=== PATIENT | male | born 1940 | race Caucasian/White ===

== ENCOUNTER 2016-05-07 11:53 | Emergency (ER) | payer OTHER ==
[~2016-05-07] VITALS: Wt 81.8 kg
[~2016-05-07 11:53] MED LIST: AMLO-218 PO; AMOX; BISA10SU RC; CLIN-73 PO; CLOP75TA19 PO; DOCU-144 PO; EPO4ESRD IJ; FERR1POW MC; GLIP-95 PO; GLIP5POW2 MC; HYDR-3498 PO; HYDR-3672 PO; HYDR-762 PO; IBUP-1542 PO; ICNCLON PO; LACT10SO53 PO; LANTUS; LANTUS SC; LISI40TA9 PO; METO-448 PO; NEPH PO; NOVOLIN; NOVOLOG; PARO20TA58 PO; PERCOCET PO; PROC10TA PO; RANI150T9 PO; SEVE800T10 PO; SIMV40TA2 PO; [UNRECOGNIZED DRUG - OTHER] PO
[2016-05-07 11:57] VITALS: Wt 81.8 kg
[2016-05-07] MEDS ORDERED: CEPH-443 PO (14:28)
--- NOTE | 2016-05-07 14:57 | ERD ---
ER Documentation Chief Complaint Date/Time DATE: 05/07/16 TIME: 14:54 Chief Complaint TOENAIL PAIN. (JUST TOOK HIS BP MEDS) HPI Patient is diabetic. 3 days ago he took off his left great toenail, the area is erythematous not painful. No fevers or chills. No headaches no chest pain. He has high blood pressure and his blood pressure is high now but he just took his BP meds prior to coming in. ROS All systems reviewed and are negative except as per history of present illness. Medications Home Meds Active Scripts Cephalexin* (Keflex*) 500 Mg Capsule, 500 MG PO QID for 5 Days, CAP Prov:ZULY TAVAREZ 05/07/16 Docusate Sodium* (Colace*) 100 Mg Capsule, 100 MG PO TID, #30 CAP Prov:GERONIMO BACA MD 07/15/15 Hydrocodone Bit-Acetaminophen* ([place]*) 10-325 Mg Tablet, 1 TAB PO Q6 Y for PAIN , #7 TAB Prov:GERONIMO BACA MD 07/15/15 Hydrocodone Bit-Acetaminophen* ([place]*) 5-325 Mg Tab, 1 TAB PO Q6 Y for PAIN LEVEL 6-10, #15 TAB Prov:CHOMINI 09/29/14 Ibuprofen* (Motrin*) 600 Mg Tab, 600 MG PO Q6, #15 TAB Prov:CHOKERENA 09/29/14 Clindamycin Hcl* (Clindamycin Hcl*) 300 Mg Capsule, 300 MG PO QID for 7 Days, CAP Prov:CHOMINI 09/29/14 Reported Medications [Novolog] No Conflict Check SLIDING SCALE AC AND HS 02/28/11 [Lantus ] No Conflict Check 14 UNIT HS 02/28/11 Oxycodone Hcl/Acetaminophen (Percocet) 1 Tab Tab, 2 TAB PO Q4 Y 02/28/11 Prochlorperazine Maleate (Compazine) 10 Mg Tablet, 10 MG PO Q4 Y 02/28/11 Clonidine (Clonidine (Pediatric Compound)) 0.1 Mg/Ml Susp, 0.1 MG PO Q6 Y 02/28/11 Bisacodyl (Bisacodyl) 10 Mg/Supp.rect Supp.rect, 10 MG RC DAILY Y 02/28/11 Paroxetine Hcl* (Paxil*) 20 Mg Tablet, 20 MG PO DAILY 02/28/11 Metoprolol Tartrate* (Lopressor*) 25 Mg Tab, 25 MG PO BID 02/28/11 Sevelamer Hcl* (Renagel*) 800 Mg Tablet, 800 MG PO TID 02/28/11 Simvastatin* (Zocor*) 40 Mg Tablet, 40 MG PO HS 02/28/11 Ranitidine Hcl* (Zantac*) 150 Mg Capsule, 150 MG PO DAILY 02/28/11 Multivit/Ca Carb/B Cmplx/Fa* (Roberta-Fito*) 1 Tab Tab, 1 TAB PO DAILY 02/28/11 Lactulose (Lactulose) 10 G/15 Ml Solution, 20 G PO DAILY 02/28/11 Glipizide (Glipizide) 5 Gm Powder, 5 GM MC DAILY 02/28/11 Lisinopril* (Lisinopril*) 40 Mg Tablet, 40 MG PO DAILY 02/28/11 Hydralazine Hcl* (Hydralazine Hcl*) 50 Mg Tablet, 50 MG PO TID 02/28/11 Epoetin Dre (Epogen) 4,000 Units/Ml Soln, 6000 UNITS IJ TID FOR WEEK 02/28/11 Docusate Sodium* (Colace*) 100 Mg Capsule, 100 MG PO BID 02/28/11 Ferrous Fumarate (Ferrous Fumarate) 1 Gm Powder, 1 MC DAILY 02/28/11 Clopidogrel Bisulfate (Plavix) 75 Mg Tablet, 75 MG PO DAILY 02/28/11 Amlodipine Besylate* (Norvasc*) 10 Mg Tablet, 10 MG PO DAILY 02/28/11 [Amox] No Conflict Check 01/04/11 [Lantus] No Conflict Check, 20 UNITS SC QHS 01/04/11 [Novolin] No Conflict Check, PER S/S 01/04/11 Lisinopril* (Lisinopril*) 40 Mg Tablet, 40 MG PO DAILY 01/04/11 Glipizide* (Glipizide*) 10 Mg Tablet, 10 MG PO BID 01/04/11 [Tams] No Conflict Check, 0.4 MG PO QHS 01/04/11 Allergies Allergies: Coded Allergies: No Known Allergy (Verified , 02/28/11) PMhx/Soc History of Surgery: Yes (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 SURGERY RIGHT NECK TUNE) Anesthesia Reaction: No Hx Neurological Disorder: Yes (2006 CVA) Hx Respiratory Disorders: No Hx Cardiac Disorders: Yes (HTN) Hx Psychiatric Problems: No Hx Miscellaneous Medical Probl: Yes (ACUTE RENAL FAILURE PERIPHERAL VASCULAR DISESE CEREBRAL VASCULAR DISESE ) Hx Alcohol Use: No Hx Substance Use: No Hx Tobacco Use: No Smoking Status: Never smoker Physical Exam Vitals Vital Signs Date Time Temp Pulse Resp B/P Pulse Ox O2 Delivery O2 Flow Rate FiO2 05/07/16 11:57 97.6 68 20 229/91 100 Physical Exam Const: [] Head: Atraumatic Eyes: Normal Conjunctiva ENT: Normal External Ears, Nose and Mouth. Neck: Full range of motion..~ No meningismus. Resp: Clear to auscultation bilaterally Cardio: Regular rate and rhythm, no murmurs Abd: Soft, non tender, non distended. Normal bowel sounds Skin: No petechiae or rashes Back: No midline or flank tenderness Ext: No cyanosis, or edema. Left first toenail bed has mild erythema and granular tissue and neurovascularly intact no discharge. Neur: Awake and alert Psych: Normal Mood and Affect Procedures/MDM Left toenail has erythema I will give him antibiotics prophylaxis against infection since he is diabetic. There is no signs of abscess at this point. There may be an early paronychia versus other. There is no reason to do labs as he is stable and I will cover him with antibiotics. He has no headache no chest pain no abdominal pain I doubt hypertensive urgency or emergency and we did not give him blood pressure medication as he just took his blood pressure medication prior to arrival. Departure Diagnosis: Primary Impression: Nail bed injury Additional Impression: Hypertension, uncontrolled Condition: Stable Patient Instructions: Nail Avulsion, Partial, Nail Removal Referrals: REGGIE HECTOR MD (PCP) ZULY TAVAREZ DO May 07, 2016 14:57
== END 2016-05-07 14:50 | disposition home or self-care (01) ==
LOC: FTE 11:53
DX: S99.922A Unspecified injury of left foot, initial encounter (principal); I10 Essential (primary) hypertension; E11.9 Type 2 diabetes mellitus without complications; X58.XXXA Exposure to other specified factors, initial encounter; Y92.9 Unspecified place or not applicable; Z79.4 Long term (current) use of insulin; Z79.84 Long term (current) use of oral hypoglycemic drugs
CPT/HCPCS: 99283

== ENCOUNTER 2016-06-30 14:57 | Emergency (ER) | payer MEDICARE, MEDICAID ==
[~2016-06-30] VITALS: Ht 167.6 cm; Wt 72.0 kg
[~2016-06-30 14:57] MED LIST changes: +ATROPINE 1 MG/10 ML SYRINGE ONE; +CA CHLORIDE 10% 10 ML SYRINGE ONE; +CEPH-443 PO; +DEXTROSE 50% 50 ML SYRINGE ONE
[2016-06-30 15:08] VITALS: Ht 167.6 cm; Wt 72.0 kg
[2016-06-30 15:37] LABS: ADD SCAN DIFF NO
[2016-06-30 15:41] LABS: BASOPHILS % 0.1 % (0.0-2.0); EOSINOPHILS # 0.2 10^3/ul (0.0-0.5); EOSINOPHILS % 1.3 % (0.0-7.0); HEMATOCRIT 27.1 % (42.0-52.0); HEMOGLOBIN 8.4 g/dl (14.0-18.0); LYMPHOCYTES # 1.2 10^3/ul (0.8-2.9); LYMPHOCYTES % 9.2 % (15.0-51.0); MEAN CORPUSCULAR HEMOGLOBIN 28.8 pg (29.0-33.0); MEAN CORPUSCULAR VOLUME 92.8 fl (82.0-101.0); MEAN PLATELET VOLUME 12.2 fl (7.4-10.4); MONOCYTE # 0.9 10^3/ul (0.3-0.9); NEUTROPHIL # 11.1 10^3/ul (1.6-7.5); PLATELET COUNT 233 10^3/UL (140-415); RED BLOOD COUNT 2.92 10^6/ul (4.70-6.10); RED CELL DISTRIBUTION WIDTH 13.9 % (11.5-14.5); WHITE BLOOD COUNT 13.5 10^3/ul (4.8-10.8)
[2016-06-30 15:49] LABS: INR 1.15; PROTIME 14.7 Sec (12.2-14.2); PT RATIO 1.1
[2016-06-30 15:50] LABS: PARTIAL THROMBOPLASTIN TIME 31.5 Sec (25.0-35.0)
[2016-06-30 15:52] LABS: ALBUMIN 3.1 g/dl (3.3-4.9); CHLORIDE 106 mmol/L (97-110)
[2016-06-30 15:53] LABS: SODIUM 137 mmol/L (135-144)
[2016-06-30 15:55] LABS: ALBUMIN/GLOBULIN RATIO 1.14; ANION GAP 18 (8-16); CARBON DIOXIDE 20 mmol/L (21-31); CREATININE 3.46 mg/dl (0.61-1.24); TOTAL PROTEIN 5.8 g/dl (6.1-8.1)
[2016-06-30 15:56] LABS: ALANINE AMINOTRANSFERASE 31 IU/L (13-69); ALKALINE PHOSPHATASE 118 IU/L (42-121); ASPARTATE AMINO TRANSFERASE 33 IU/L (15-46); BLOOD UREA NITROGEN 62 mg/dl (7-20); CALCIUM 8.6 mg/dl (8.4-10.2); GLUCOSE 292 mg/dl (70-220)
[2016-06-30 16:04] LABS: B-TYPE NATRIURETIC PEPTIDE 3410 PG/ML (0-125)
[2016-06-30 16:18] LABS: POTASSIUM 7.4 mmol/L (3.5-5.1)
--- NOTE | 2016-06-30 16:18 | RADRPT ---
PROCEDURE: XR Chest. CLINICAL INDICATION: Shortness of breath. TECHNIQUE: Single frontal view. COMPARISON: 07/15/2015. FINDINGS: There is patchy air space disease at the right lung base consistent with pneumonia. The lungs are o therwise clear. The heart is enlarged. There is calcification in the aorta consistent with atherosclerosis. There is no pleural effusion. There is no pneumothorax. IMPRESSION: 1. Right basilar pneumonia. 2. Cardiomegaly and atherosclerosis. 3. Otherwise normal chest x-ray. RPTAT: QQ .Sd Wynn MD, MD Date Time Electronically viewed and signed by .Sd Wynn MD, MD on 06/30/2016 16:18 .R/
[2016-06-30 16:21] LABS: TROPONIN-I < 0.012 ng/ml (0.00-0.12)
[2016-06-30] MEDS ORDERED: ONDANSETRON 4 MG INJ IV STA (16:31)
[2016-06-30] MEDS ORDERED: morphine 4 MG/ML VIAL IV STA (16:31)
[2016-06-30] MEDS ORDERED: NA BICARBONATE 8.4% 50 ML SYG IV STA ×3 (17:11→19:52)
[2016-06-30] MEDS ORDERED: CA GLUCONATE (GM) 10% 10ML INJ IV STA ×3 (17:11→19:52)
[2016-06-30] MEDS ORDERED: MAGN400O4 PO (17:22)
[2016-06-30] MEDS ORDERED: GLUC1KIT IJ (17:29)
[2016-06-30] MEDS ORDERED: FLEETPED PR (17:30)
[2016-06-30] MEDS ORDERED: DULR PR (17:31)
[2016-06-30] MEDS ORDERED: ACET-141 PO (17:33)
[2016-06-30] MEDS ORDERED: INSU100I27 SQ (17:34)
[2016-06-30] MEDS ORDERED: PANT40TA3 PO (17:35)
[2016-06-30] MEDS ORDERED: FER325 PO (17:35)
[2016-06-30] MEDS ORDERED: NOVO3I SC (17:40)
[2016-06-30] MEDS ORDERED: ATOR20TA38 PO (17:42)
[2016-06-30] MEDS ORDERED: AMLO5TAB4 PO (17:42)
[2016-06-30] MEDS ORDERED: HYDR100T7 PO (17:43)
[2016-06-30] MEDS ORDERED: TAMS-14 PO (17:44)
[2016-06-30] MEDS ORDERED: LOSA100T47 PO (17:45)
[2016-06-30] MEDS ORDERED: CARV25TA97 PO (17:46)
[2016-06-30] MEDS ORDERED: MELA3TAB17 PO (17:46)
[2016-06-30] MEDS ORDERED: DEXTROSE 50% 50 ML SYRINGE IV STA ×2 (17:53→19:52)
[2016-06-30] MEDS ORDERED: INSULIN REGULAR, HUMAN 100 UNIT/1 ML 3ML VIAL IV STA ×2 (17:53→19:52)
[2016-06-30] MEDS ORDERED: ATROPINE 1 MG INJ IV ONE ×2 (18:00→21:30)
[2016-06-30 18:09] VITALS: BP 103/64; PULSE 38; RESP 30; TEMP 94
[2016-06-30] MEDS ORDERED: AZITHROMYCIN 500MG/NS (PMX) 250 ML IV STA (18:21)
[2016-06-30] MEDS ORDERED: CEFTRIAXONE 1 GM/50 ML (PMX) 50 ML IVPB STA (18:21)
--- NOTE | 2016-06-30 18:21 | ERA ---
ER Documentation Chief Complaint Date/Time DATE: 06/30/16 TIME: 18:15 Chief Complaint BRADYCARDIA, SOB AND DIAPHORETIC HPI This is a 75-year-old male had a nursing care facility who had called EMS because the patient was complaining of chest pain. The patient on arrival by EMS was found to be bradycardic with heart rate in the 20s-30s and was given 1 mg of atropine with improvement. He stated patient had said his chest pain was gone but was short of breath and slightly diaphoretic. On arrival here the patient is having a heart rate in the 30s-40s says he has no pain in the chest and is not short of breath. The patient has a history of renal failure and is chosen to no longer have dialysis. ROS All systems reviewed and are negative except as per history of present illness. Medications Home Meds Reported Medications Melatonin (Melatonin) 3 Mg Tablet.sa, 3 MG PO HS, TAB.SA 06/30/16 Carvedilol* (Coreg*) 25 Mg Tablet, 25 MG PO BID, #60 TAB HOLD IF SBP<110 OR HR<60 06/30/16 Losartan Potassium* (Cozaar*) 100 Mg Tablet, 100 MG PO QAM, #30 TAB HOLD IF SBP<110 06/30/16 Tamsulosin Hcl* (Flomax*) 0.4 Mg Cap.er.24h, 0.4 MG PO QAM, CAP 06/30/16 Hydralazine Hcl* (Hydralazine Hcl*) 100 Mg Tablet, 100 MG PO TID, #90 TAB HOLD IF SBP<110 06/30/16 Atorvastatin Calcium* (Atorvastatin Calcium*) 20 Mg Tablet, 20 MG PO QHS, #30 TAB 06/30/16 Amlodipine Besylate* (Norvasc*) 5 Mg Tablet, 5 MG PO BID, TAB HOLD IF SBP<110 06/30/16 Insulin Aspart* (Novolog Insulin Pen*) 100 Unit/Ml Soln, 0 SC .SLIDING SCALE AC , EA IF BS IS LESS THAN 60, CALL MD; IF IS 150-199=1 UNITS, 200-249=2 UNITS, 250-299=3 UNITS, 300-349=4 UNITS, 349=5 UNITS; IF BS IS GREATER THAN 349, CALL MD 06/30/16 Pantoprazole* (Protonix*) 40 Mg Tablet.dr, 40 MG PO QAM, TAB 06/30/16 Ferrous Sulfate* (Ferrous Sulfate*) 325 Mg Tabec, 325 MG PO TID, TAB 06/30/16 Insulin Detemir (Levemir Flextouch) 100 Unit/1 Ml Insuln.pen, 40 UNIT SQ QPM 06/30/16 Acetaminophen* (Acetaminophen*) 500 MG Extra Strength Tablet, 500 MG PO Q6H Y for MILD PAIN LEVEL 1-3, TAB 06/30/16 Bisacodyl* (Bisacodyl*) 10 Mg Supp, 10 MG OK DAILY, SUPP 06/30/16 Sod Phosphate/Sod Biphosphate* (Fleet* Enema Pediatric) 66.6 Ml Soln, 118 ML OK Q2DAYS Y for CONSTIPATION, ENEMA 06/30/16 Glucagon,Human Recombinant (Glucagon Emergency Kit) 1 Mg Kit, 1 MG IJ QAM, KIT IF BS<40 IN PATIENT WITH AMS LEADING TO UNCONSCIOUS STATE AND IV ACCESS NOT ESTABILISH;HYPOGLYCEMIA; PRN. 06/30/16 Magnesium Hydroxide* (Milk Of Magnesia*) 400 Mg/5 Ml Oral.susp, 30 ML PO QHS, ML 06/30/16 Discontinued Reported Medications [Novolog] No Conflict Check SLIDING SCALE AC AND HS 02/28/11 [Lantus ] No Conflict Check 14 UNIT HS 02/28/11 Oxycodone Hcl/Acetaminophen (Percocet) 1 Tab Tab, 2 TAB PO Q4 Y 02/28/11 Prochlorperazine Maleate (Compazine) 10 Mg Tablet, 10 MG PO Q4 Y 02/28/11 Clonidine (Clonidine (Pediatric Compound)) 0.1 Mg/Ml Susp, 0.1 MG PO Q6 Y 02/28/11 Bisacodyl (Bisacodyl) 10 Mg/Supp.rect Supp.rect, 10 MG RC DAILY Y 02/28/11 Paroxetine Hcl* (Paxil*) 20 Mg Tablet, 20 MG PO DAILY 02/28/11 Metoprolol Tartrate* (Lopressor*) 25 Mg Tab, 25 MG PO BID 02/28/11 Sevelamer Hcl* (Renagel*) 800 Mg Tablet, 800 MG PO TID 02/28/11 Simvastatin* (Zocor*) 40 Mg Tablet, 40 MG PO HS 02/28/11 Ranitidine Hcl* (Zantac*) 150 Mg Capsule, 150 MG PO DAILY 02/28/11 Multivit/Ca Carb/B Cmplx/Fa* (Roberta-Fito*) 1 Tab Tab, 1 TAB PO DAILY 02/28/11 Lactulose (Lactulose) 10 G/15 Ml Solution, 20 G PO DAILY 02/28/11 Glipizide (Glipizide) 5 Gm Powder, 5 GM MC DAILY 02/28/11 Lisinopril* (Lisinopril*) 40 Mg Tablet, 40 MG PO DAILY 02/28/11 Hydralazine Hcl* (Hydralazine Hcl*) 50 Mg Tablet, 50 MG PO TID 02/28/11 Epoetin Dre (Epogen) 4,000 Units/Ml Soln, 6000 UNITS IJ TID FOR WEEK 02/28/11 Docusate Sodium* (Colace*) 100 Mg Capsule, 100 MG PO BID 02/28/11 Ferrous Fumarate (Ferrous Fumarate) 1 Gm Powder, 1 MC DAILY 02/28/11 Clopidogrel Bisulfate (Plavix) 75 Mg Tablet, 75 MG PO DAILY 02/28/11 Amlodipine Besylate* (Norvasc*) 10 Mg Tablet, 10 MG PO DAILY 02/28/11 [Amox] No Conflict Check 01/04/11 [Lantus] No Conflict Check, 20 UNITS SC QHS 01/04/11 [Novolin] No Conflict Check, PER S/S 01/04/11 Lisinopril* (Lisinopril*) 40 Mg Tablet, 40 MG PO DAILY 01/04/11 Glipizide* (Glipizide*) 10 Mg Tablet, 10 MG PO BID 01/04/11 [Tams] No Conflict Check, 0.4 MG PO QHS 01/04/11 Discontinued Scripts Cephalexin* (Keflex*) 500 Mg Capsule, 500 MG PO QID for 5 Days, CAP Prov:ZULY TAVAREZ DO 05/07/16 Docusate Sodium* (Colace*) 100 Mg Capsule, 100 MG PO TID, #30 CAP Prov:GERONIMO BACA MD 07/15/15 Hydrocodone Bit-Acetaminophen* ([place]*) 10-325 Mg Tablet, 1 TAB PO Q6 Y for PAIN , #7 TAB Prov:GERONIMO BACA MD 07/15/15 Hydrocodone Bit-Acetaminophen* ([place]*) 5-325 Mg Tab, 1 TAB PO Q6 Y for PAIN LEVEL 6-10, #15 TAB Prov:CHO,MINI 09/29/14 Ibuprofen* (Motrin*) 600 Mg Tab, 600 MG PO Q6, #15 TAB Prov:CHO,MINI 09/29/14 Clindamycin Hcl* (Clindamycin Hcl*) 300 Mg Capsule, 300 MG PO QID for 7 Days, CAP Prov:CHO,MINI 09/29/14 Allergies Allergies: Coded Allergies: No Known Allergy (Verified , 06/30/16) PMhx/Soc History of Surgery: Yes (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0 40 30 96/54 91 06/30/16 15:24 46 91 60 06/30/16 15:18 Non Rebreather 06/30/16 15:08 93.0 47 30 111/48 90 Physical Exam Const: Well-developed, well-nourished Head: Atraumatic, normocephalic Eyes: Normal Conjunctiva, PERRLA, EOMI, normal sclera, no nystagmus ENT: Normal External Ears, Nose and Mouth, moist mucus membranes. Neck: Full range of motion. No meningismus, no lymphadenopathy. Resp: Clear to auscultation bilaterally, no wheezing, rhonchi, rales Cardio: Bradycardia with irregular irregular rhythm, S1-S2 present Abd: Soft, non tender x 4, non distended. Normal bowel sounds, no guarding or rebound, no pulsitile abdominal masses or bruits Skin: No petechiae or rashes, no ecchymosis , no maculopapular rash Back: No midline or flank tenderness Ext: No cyanosis, or edema, FROM x 4, normal inspection, neurovascularly intact x 4 Neur: Awake and alert, STR 5/5 x 4, sensation intact x 4, no focal findings, cerebellum intact Psych: Normal Mood and Affect Result Diagram: 06/30/16 1525 06/30/16 1645 Results 24 hrs Laboratory Tests Test 06/30/16 15:25 06/30/16 16:45 Activated Partial Thromboplast Time 31.5Sec Alanine Aminotransferase (ALT/SGPT) 31IU/L Albumin 3.1g/dl Albumin/Globulin Ratio 1.14 Alkaline Phosphatase 118IU/L Anion Gap 18 Aspartate Amino Transf (AST/SGOT) 33IU/L B-Type Natriuretic Peptide 3410PG/ML Basophils # 0.010^3/ul Basophils % 0.1% Blood Urea Nitrogen 62mg/dl Calcium Level 8.6mg/dl Carbon Dioxide Level 20mmol/L Chloride Level 106mmol/L Creatinine 3.46mg/dl Digoxin Level < 0.4ng/ml Direct Bilirubin 0.00mg/dl Eosinophils # 0.210^3/ul Eosinophils % 1.3% Globulin 2.70g/dl Glucose Level 292mg/dl Hematocrit 27.1% Hemoglobin 8.4g/dl INR International Normalized Ratio 1.15 Indirect Bilirubin 0.0mg/dl Lymphocytes # 1.210^3/ul Lymphocytes % 9.2% Mean Corpuscular Hemoglobin 28.8pg Mean Corpuscular Hemoglobin Concent 31.0g/dl Mean Corpuscular Volume 92.8fl Mean Platelet Volume 12.2fl Monocytes # 0.910^3/ul Monocytes % 7.0% Neutrophils # 11.110^3/ul Neutrophils % 82.0% Nucleated Red Blood Cells # 0.010^3/ul Nucleated Red Blood Cells % 0.0/100WBC Platelet Count 23246^3/UL Potassium Level 7.4mmol/L 8.0mmol/L Prothrombin Time 14.7Sec Prothrombin Time Ratio 1.1 Red Blood Count 2.9210^6/ul Red Cell Distribution Width 13.9% Sodium Level 137mmol/L Total Bilirubin 0.0mg/dl Total Protein 5.8g/dl Troponin I < 0.012ng/ml White Blood Count 13.510^3/ul Current Medications Medications (Trade) Dose Ordered Sig/[place] Route PRN Reason Start Time Stop Time Status Last Admin Dose Admin Morphine Sulfate (morphine) 4 mg ONCE STAT IV 06/30/16 16:31 06/30/16 16:33 DC Ondansetron HCl (Zofran Inj) 4 mg ONCE STAT IV 06/30/16 16:31 06/30/16 16:33 DC Sodium Bicarbonate (Na Bicarb 8.4% Syg) 50 ml ONCE STAT IV 06/30/16 17:11 06/30/16 17:13 DC 06/30/16 17:23 Calcium Gluconate (Ca Gluc) 1 gm ONCE STAT IV 06/30/16 17:11 06/30/16 17:13 DC 06/30/16 17:23 Atropine Sulfate (Atropine) 1 mg ONCE ONCE IV 06/30/16 18:00 06/30/16 18:01 DC 06/30/16 17:45 Insulin Human Regular (Humulin R) 10 unit ONCE STAT IV 06/30/16 17:53 06/30/16 17:54 DC 06/30/16 18:01 Dextrose (D50w Syringe) 50 ml ONCE STAT IV 06/30/16 17:53 06/30/16 17:54 DC 06/30/16 17:59 Sodium Bicarbonate (Na Bicarb 8.4% Syg) 50 ml ONCE STAT IV 06/30/16 17:53 06/30/16 17:54 DC 06/30/16 18:00 Calcium Gluconate 1 gm 1 gm ONCE STAT IV 06/30/16 17:53 06/30/16 17:54 DC 06/30/16 18:00 Azithromycin 250 ml @ 250 mls/hr ONCE STAT IV 06/30/16 18:21 06/30/16 19:20 DC Ceftriaxone Sodium (Rocephin) 50 ml @ 100 mls/hr ONCE STAT IVPB 06/30/16 18:21 06/30/16 18:50 DC Sodium Polystyrene Sulfonate (Kayexalate) 30 gm ONCE STAT PO 06/30/16 18:22 06/30/16 18:26 DC 06/30/16 19:40 Insulin Human Regular (Humulin R) 10 unit ONCE STAT IV 06/30/16 19:52 06/30/16 19:54 DC 06/30/16 20:31 Dextrose (D50w Syringe) 50 ml ONCE STAT IV 06/30/16 19:52 3/10/17 19:54 DC 06/30/16 20:29 Sodium Bicarbonate (Na Bicarb 8.4% Syg) 50 ml ONCE STAT IV 06/30/16 19:52 06/30/16 19:54 DC 06/30/16 20:20 Calcium Gluconate (Ca Gluc) 1 gm ONCE STAT IV 06/30/16 19:52 06/30/16 19:54 DC 06/30/16 20:42 Sodium Polystyrene Sulfonate 30 gm 30 gm ONCE STAT PO 06/30/16 20:33 06/30/16 20:35 DC Sodium Chloride (NS) 500 ml @ 500 mls/hr Q1H ONCE IV 06/30/16 21:00 06/30/16 21:59 UNV Procedures/MDM PROCEDURE: XR Chest. CLINICAL INDICATION: Shortness of breath. TECHNIQUE: Single frontal view. COMPARISON: 07/15/2015. FINDINGS: There is patchy air space disease at the right lung base consistent with pneumonia. The lungs are otherwise clear. The heart is enlarged. There is calcification in the aorta consistent with atherosclerosis. There is no pleural effusion. There is no pneumothorax. IMPRESSION: 1. Right basilar pneumonia. 2. Cardiomegaly and atherosclerosis. 3. Otherwise normal chest x-ray. RPTAT: QQ .Sd Wynn MD, MD Date Time Electronically viewed and signed by .Sd Wynn MD, MD on 06/30/2016 16:18 .R/ CC: MARILU REYNOLDS DO EKG: Rate/Rhythm: Undetermined rhythm, bradycardia irregular rhythm, likely slow A. fib or junctional fermin QRS, ST, QT: Normal QRS, QT] Impression: Abnormal The patient's repeat potassium is 8.0. He was treated with a potassium cocktail of insulin, dextrose, Kayexalate, calcium, sodium bicarb Hyperkalemia is likely the cause of his arrhythmia. He also has a pneumonia. We will get blood cultures and give antibiotics. Patient will need to be admitted to the hospital for hyperkalemic treatment likely needs urgent dialysis. Not able to contact the patient's primary care physician at this time. I will repeat hyperkalemic IV meds now. Critical Care Time: 40 minutes Treatments/Evaluations: Close monitoring and treatment of unstable vital signs, cardiorespiratory, and neurologic status, while maintaining tight balance of fluid, respiratory, and cardiac interventions. This time includes discussing the case with the patient and the patient's family. This time does not include all procedures stated elsewhere in this record. This time also includes reviewing old records, labs and radiological studies. This time includes examining and re-examining the patient. Additionally, this time also includes arranging care with admitting and consulting physicians. ] Spoke with Dr. Bard barksdale. He will try to get [facility] certified registered nurse practitioner to have emergent hemodialysis. I will repeat his dose of Kayexalate now Spoke with Dr. madrid, told me to give 500 cc of normal saline to help dilute the potassium. He will call vascular to try to get access for dialysis tonight Departure Diagnosis: Primary Impression: Hyperkalemia Additional Impressions: Pneumonia Qualified Code: J18.9 - Pneumonia of right lower lobe due to infectious organism Bradycardia Condition: Serious MARILU REYNOLDS DO Jun 30, 2016 18:21
[2016-06-30] MEDS ORDERED: NA POLYST SULFON 15 GM/60 ML BTL PO STA ×2 (18:22→20:33)
[2016-06-30] MEDS ORDERED: SOD CHLORIDE 0.9% 500 ML IV ONE (21:00)
--- NOTE | 2016-06-30 23:55 | QN ---
Documentation Comment The patient is a 75-year-old male, admitted for acute hyperkalemia, acute pneumonia, acute bradycardia and Dr. Gilliland and Dr. Mich Mcgill. The ER physician was Dr. Amato. Shortly after my arrival at 9 pm, he went to bradycardia. I was asked to attend the patient by his nurse. The patient was in sinus bradycardia about 20 bpm on the monitor. He is obtunded, not arousable. His last potassium was 8. Accu 295. Atropine 0.5 mg x3 about 3 min apart. He was immediately treated with 3 ampules calcium chloride IV, 1 amp D50 IV, 10 units of Regular Insulin IV for presumed acute hyperkalemia that caused bradycardia. He needs to be intubated immediately. However the daughter was at the bedside and stated that the patient is DO NOT INTUBATE and DO NOT RESUSCITATE and no CPR according to his wishes. He was therefore only treated chemically. The code started at 9:15 pm and ended 9:30 pm He at 9:[address] Gilliland, Dr. Mcgill were notified Critical Care: Time: 35 minutes excluding all billable procedures. Treatments/Evaluations: Close monitoring and treatment of unstable vital signs, cardiorespiratory, and neurologic status, while maintaining tight balance of fluid, respiratory, and cardiac interventions. JAE GARCIA MD Jun 30, 2016 23:55
== END 2016-07-01 01:11 | disposition expired ==
LOC: E/R 14:57
DX: E87.5 Hyperkalemia (principal); J18.9 Pneumonia, unspecified organism; R00.1 Bradycardia, unspecified; I10 Essential (primary) hypertension; E11.9 Type 2 diabetes mellitus without complications; Z79.4 Long term (current) use of insulin; Z79.84 Long term (current) use of oral hypoglycemic drugs
CPT/HCPCS: 36415; 71010; 80053; 80162; 82962; 83880; 84132; 84484; 85025; 85610; 85730; 87040; 93005; 94660; 96374; 96375; 96376; 99291; J0461; J0610; J1815; J7040; J0696; J2270; J2405